=== PATIENT | male | born 1990 | race Caucasian/White ===

== ENCOUNTER → 2020-02-28 | Outpatient (CLI) | payer SELFPAY ==
[~2020-02-28] MED LIST: CATHETER FLUSH 10 ML SYR IV PRN; HOLD METFORMIN - RECEIVED CONTRAST 20 ML VIAL IV SCH; IOHEXOL 350 MG/ML 100 ML (OMNIPAQUE 350) VIAL IV ONE; NS 100 ML (IVPB) BAG IV ONE
--- NOTE | 2020-02-28 17:22 | Diagnostic Imaging Report ---
PROCEDURE: CT neck soft tissue with contrast. TECHNIQUE: Multiple contiguous axial images were obtained through the neck after the administration of contrast. Auto Exposure Controls were utilized during the CT exam to meet ALARA standards for radiation dose reduction. INDICATION: Mass in the right maxilla. COMPARISON: None available. FINDINGS: There are extensive nodules and masses throughout the visualized lung apices, indicative of metastatic disease. In the right maxilla, there is a soft tissue destructive mass located in the region of the premolar teeth. This completely destroys the maxilla and the mass measures approximately 2.8 x 2.8 cm. No invasion of the maxillary sinus, although the cranial aspect of the mass does extend into the buccal space. No mandibular destruction. No space-occupying mass or hydrocephalus within the visualized aspects of the brain. No enlarged cervical lymph nodes by size criteria. There are some small upper cervical lymph nodes, all measuring less than a centimeter in size. Thyroid is unremarkable. No destructive lesion in the cervical spine. IMPRESSION: 1. Extensive metastases throughout the upper chest with multiple nodules and masses present. 2. Soft tissue destructive mass in the right mireya-aspect of the maxilla centered in the region of the incisors and premolars should be considered neoplastic in nature and could also be a metastasis or the primary tumor. Dictated by: Dictated on workstation # [id number]
== END ==
LOC: RAD FS 15:30
DX: C78.00 Secondary malignant neoplasm of unspecified lung (principal); C80.1 Malignant (primary) neoplasm, unspecified; D49.0 Neoplasm of unspecified behavior of digestive system
CPT/HCPCS: 70491

== ENCOUNTER 2020-04-02 18:22 | Emergency (ER) | payer MEDICAID, OTHER ==
--- NOTE | 2020-04-02 18:35 | ED General ---
General Stated Complaint: LEFT SIDE NUMBNESS,WEAKNESS,FALL History of Present Illness Date Seen by Provider: Apr 02, 2020 Time Seen by Provider: 18:30 Initial Comments Patient presents after a sudden collapse then associated onset of left sided body weakness and numbness. Patient without a history of CVA but has metastatic CA....sarcoma. Seen yesterday @ [facility] by Oncology for initial evaluation. Admits to having an episode 2 wks ago of sudden left sided weakness and numbness (not as severe) that resolved after several hours, so he never sought treatment. Allergies and Home Medications Allergies Coded Allergies: No Known Drug Allergies (Unverified , 04/02/20) Patient Home Medication List Home Medication List Reviewed: Yes Review of Systems Review of Systems Constitutional: see HPI; No chills, No dizziness, No fever, No malaise; weakness EENTM: no symptoms reported Respiratory: No cough, No short of breath Cardiovascular: No chest pain, No edema, No palpitations, No syncope Gastrointestinal: No abdominal pain, No nausea, No vomiting Musculoskeletal: No back pain, No joint pain Skin: No change in color, No lesions, No rash Psychiatric/Neurological: See HPI, Headache, Numbness, Paresthesia; Denies Pre- Existing Deficit, Denies Seizure, Denies Tingling, Denies Tremors; Weakness Past Egimrbs-Jckogw-Vllxrc Hx Past Med/Social Hx: Reviewed Nursing Past Med/Soc Hx Patient Social History Recent Foreign Travel: No Contact w/Someone Who Travel: No Physical Exam Vital Signs Vital Signs - First Documented 04/02/20 18:39 Temp 36.4 Pulse 109 Resp 30 B/P (MAP) 135/79 (97) Pulse Ox 93 Capillary Refill : Height, Weight, BMI Height: '" Weight: lbs. oz. kg; BMI Method: General Appearance: No Apparent Distress, WD/WN Eyes: Bilateral Eye PERRL, Bilateral Eye EOMI HEENT: PERRL/EOMI, Normal ENT Inspection Neck: Full Range of Motion, Non Tender, Supple, Carotid Bruit Respiratory: Chest Non Tender, Lungs Clear Cardiovascular: Regular Rate, Rhythm, No Edema, No Gallop, No JVD, Normal Peripheral Pulses Gastrointestinal: Normal Bowel Sounds, Non Tender, Soft Back: No CVA Tenderness, No Vertebral Tenderness Extremity: Normal Capillary Refill, Normal Inspection, Non Tender Neurologic/Psychiatric: Alert, Oriented x3, Normal Mood/Affect; No Depressed Affect, No Disoriented; Facial Droop, Motor Weakness, Sensory Deficit, Other (flaccid left side...UE and LE w left facial droop which spares the forehead and dysarthria without aphasia) Skin: Normal Color, Warm/Dry Progress/Results/Core Measures Suspected Sepsis SIRS Temperature: Pulse: Respiratory Rate: Laboratory Tests 04/02/20 18:47: White Blood Count 8.1 Blood Pressure / Mean: Laboratory Tests 04/02/20 18:47: Platelet Count 376 Results/Orders Lab Results Laboratory Tests Test 04/02/20 18:47 Range/Units White Blood Count 8.1 4.3-11.0 10^3/uL Red Blood Count 4.46 4.35-5.85 10^6/uL Hemoglobin 12.6 L 13.3-17.7 G/DL Hematocrit 39 L 40-54 % Mean Corpuscular Volume 87 80-99 FL Mean Corpuscular Hemoglobin 28 25-34 PG Mean Corpuscular Hemoglobin Concent 33 32-36 G/DL Red Cell Distribution Width 13.5 10.0-14.5 % Platelet Count 376 130-400 10^3/uL Mean Platelet Volume 8.3 7.4-10.4 FL Immature Granulocyte % (Auto) 0 % Neutrophils (%) (Auto) 70 42-75 % Lymphocytes (%) (Auto) 16 12-44 % Monocytes (%) (Auto) 9 0-12 % Eosinophils (%) (Auto) 4 0-10 % Basophils (%) (Auto) 1 0-10 % Neutrophils # (Auto) 5.7 1.8-7.8 X 10^3 Lymphocytes # (Auto) 1.3 1.0-4.0 X 10^3 Monocytes # (Auto) 0.7 0.0-1.0 X 10^3 Eosinophils # (Auto) 0.4 H 0.0-0.3 10^3/uL Basophils # (Auto) 0.0 0.0-0.1 10^3/uL Immature Granulocyte # (Auto) 0.0 0.0-0.1 10^3/uL My Orders Orders - ENRIQUE BEAULIEU DO Ct Head Wo-R/O Stroke (04/02/20 18:27) Ed Iv/Invasive Line Start (04/02/20 18:31) Ekg Tracing (04/02/20 18:31) Cbc With Automated Diff (04/02/20 18:31) Comprehensive Metabolic Panel (04/02/20 18:31) Troponin I Fs (04/02/20 18:31) Ondansetron Injection (Zofran Injectio (04/02/20 19:00) Vital Signs/I&O 04/02/20 18:39 Temp 36.4 Pulse 109 Resp 30 B/P (MAP) 135/79 (97) Pulse Ox 93 Capillary Refill : ECG Initial ECG Impression Time: 18:40 Initial ECG Rate: 106 Initial ECG Rhythm: S.Tach Initial ECG Impression: Normal Initial ECG Comparisson: No Previous ECG Available Diagnostic Imaging Comments Date of Exam:04/02/20 CT HEAD WO-R/O STROKE EXAMINATION: CT head without contrast. TECHNIQUE: Multiple contiguous axial images were obtained through the brain without the use of intravenous contrast. All CT scans use one or more of the following dose optimizing techniques: automated exposure control, MA and/or KvP adjustment based on patient size and exam type or iterative reconstruction. HISTORY: Left-sided numbness and weakness. Fall. Slurred speech. History of metastatic cancer. COMPARISON: CT neck on 02/28/2020. FINDINGS: A hyperattenuating mass is seen in the right frontal lobe, measuring 4.0 x 3.6 cm and 3.6 cm craniocaudal. There is surrounding edema with associated 0.6 cm of right to left midline shift. No evidence of uncal or tonsillar herniation is seen. The orbits are normal. Paranasal sinuses are normal. Mastoid air cells are clear. No soft tissue abnormality is seen. No osseus lesions or fractures are seen. IMPRESSION: Findings concerning for hemorrhagic mass in the right frontal lobe with surrounding edema and 0.6 cm of right to left midline shift. No uncal or tonsillar herniation is seen at this time. Recommend neurosurgical consultation and close interval follow-up. Findings were discussed with Dr. Beaulieu at 6:44 PM on 04/02/[address] Kannan Magdaleno. Dictated by: Dictated on workstation # [id number] Dict: 04/02/20 1837 Trans: 04/02/20 5996 [id number] Interpreted by: KANNAN MAGDALENO DO Departure Impression Primary Impression: Acute CVA (cerebrovascular accident) Additional Impression: Brain mass Disposition: 02 XFER SHT-TRM HOSP Condition: Stable Transfer Transfer Reason: Exceeds level of care Transfer Progress Notes Called [facility] @ [id number] Burrows (Neuro) who advised pt go to Oncology service as the primary lesion is a mass (subsequent CVA) Departure-Patient Inst. Referrals: [facility] (PCP/Family) Primary Care Physician ENRIQUE BEAULIEU DO Apr 02, 2020 18:35
[2020-04-02 18:53] LABS: BASOPHILS % (AUTO) 1 % (0-10); EOSINOPHILS # (AUTO) 0.4 10^3/uL (0.0-0.3); EOSINOPHILS % (AUTO) 4 % (0-10); HEMATOCRIT 39 % (40-54); HEMOGLOBIN 12.6 G/DL (13.3-17.7); LYMPHOCYTES # (AUTO) 1.3 X 10^3 (1.0-4.0); LYMPHOCYTES % (AUTO) 16 % (12-44); MEAN CORPUSCULAR HEMOGLOBIN 28 PG (25-34); MEAN CORPUSCULAR HGB CONC 33 G/DL (32-36); MEAN CORPUSCULAR VOLUME 87 FL (80-99); MEAN PLATELET VOLUME 8.3 FL (7.4-10.4); MONOCYTES # (AUTO) 0.7 X 10^3 (0.0-1.0); MONOCYTES % (AUTO) 9 % (0-12); NEUTROPHILS # (AUTO) 5.7 X 10^3 (1.8-7.8); NEUTROPHILS % (AUTO) 70 % (42-75); PLATELET COUNT 376 10^3/uL (130-400); WHITE BLOOD COUNT 8.1 10^3/uL (4.3-11.0)
--- NOTE | 2020-04-02 18:57 | Diagnostic Imaging Report ---
EXAMINATION: CT head without contrast. TECHNIQUE: Multiple contiguous axial images were obtained through the brain without the use of intravenous contrast. All CT scans use one or more of the following dose optimizing techniques: automated exposure control, MA and/or KvP adjustment based on patient size and exam type or iterative reconstruction. HISTORY: Left-sided numbness and weakness. Fall. Slurred speech. History of metastatic cancer. COMPARISON: CT neck on 02/28/2020. FINDINGS: A hyperattenuating mass is seen in the right frontal lobe, measuring 4.0 x 3.6 cm and 3.6 cm craniocaudal. There is surrounding edema with associated 0.6 cm of right to left midline shift. No evidence of uncal or tonsillar herniation is seen. The orbits are normal. Paranasal sinuses are normal. Mastoid air cells are clear. No soft tissue abnormality is seen. No osseus lesions or fractures are seen. IMPRESSION: Findings concerning for hemorrhagic mass in the right frontal lobe with surrounding edema and 0.6 cm of right to left midline shift. No uncal or tonsillar herniation is seen at this time. Recommend neurosurgical consultation and close interval follow-up. Findings were discussed with Dr. Beaulieu at 6:44 PM on 04/02/[address] Kannan Magdaleno. Dictated by: Dictated on workstation # [id number]
[2020-04-02] MEDS ORDERED: ONDANSETRON 4 MG/2 ML (SDV) Z0FRAN IVP ONE (19:00)
[2020-04-02 19:36] LABS: ALANINE AMINOTRANSFERASE 17 U/L (0-55); ALKALINE PHOSPHATASE 90 U/L (40-136); BILIRUBIN,TOTAL 1.3 MG/DL (0.1-1.0); BUN/CREATININE RATIO 19; CALCIUM 10.1 MG/DL (8.5-10.1); CARBON DIOXIDE 24 MMOL/L (21-32); CHLORIDE 104 MMOL/L (98-107); CREATININE SERUM 0.81 MG/DL (0.60-1.30); GFR ESTIMATED > 60; GLUCOSE 119 MG/DL (70-105); POTASSIUM 4.7 MMOL/L (3.6-5.0); SODIUM 142 MMOL/L (135-145)
[2020-04-02 19:37] LABS: ALBUMIN 4.7 GM/DL (3.2-4.5); TOTAL PROTEIN 7.3 GM/DL (6.4-8.2)
[2020-04-02 20:10] VITALS: BP 119/79
[2020-04-02 21:18] VITALS: BP 130/77
== END 2020-04-02 21:32 | disposition short-term general hospital (02) ==
LOC: EDUNIT# 18:22 → EDBD 18:24 → ER FS 18:24
DX: I63.9 Cerebral infarction, unspecified (principal); G81.04 Flaccid hemiplegia affecting left nondominant side; R47.1 Dysarthria and anarthria; R29.810 Facial weakness; G93.9 Disorder of brain, unspecified; Z85.831 Personal history of malignant neoplasm of soft tissue
CPT/HCPCS: 36415; 70450; 80053; 84484; 85025; 93005; 99291

== ENCOUNTER → 2020-08-06 | Outpatient (CLI) | payer MEDICAID ==
[2020-08-06 09:50] LABS: BACTERIA,URINE NEGATIVE /HPF; BILIRUBIN,URINE NEGATIVE (NEGATIVE); CLARITY,URINE CLEAR; COLOR,URINE DARK YELLOW; GLUCOSE, URINE (UA) NEGATIVE (NEGATIVE); KETONES,URINE NEGATIVE (NEGATIVE); LEUKOCYTE ESTERASE ,URINE TRACE (NEGATIVE); NITRITE,URINE NEGATIVE (NEGATIVE); PROTEIN,URINE NEGATIVE (NEGATIVE)
== END ==
LOC: LAB FS 09:16
PROVIDERS: ATTEND Family Medicine
DX: R39.9 Unspecified symptoms and signs involving the genitourinary system (principal); R33.9 Retention of urine, unspecified; R10.2 Pelvic and perineal pain
CPT/HCPCS: 81000; 87088

== ENCOUNTER → 2020-08-21 | Outpatient (CLI) | payer MEDICAID ==
[2020-08-21 18:58] LABS: CLARITY,URINE CLEAR; COLOR,URINE YELLOW; PH,URINE 6.5 (5-9)
[2020-08-21 18:59] LABS: BACTERIA,URINE FEW /HPF; BILIRUBIN,URINE 1+ (NEGATIVE); GLUCOSE, URINE (UA) NEGATIVE (NEGATIVE); KETONES,URINE NEGATIVE (NEGATIVE); LEUKOCYTE ESTERASE ,URINE NEGATIVE (NEGATIVE); NITRITE,URINE NEGATIVE (NEGATIVE); PROTEIN,URINE 1+ (NEGATIVE)
== END ==
LOC: IHC 18:37
PROVIDERS: ATTEND Family Medicine
DX: C49.9 Malignant neoplasm of connective and soft tissue, unspecified (principal)
CPT/HCPCS: 81000; 87088

== ENCOUNTER 2020-09-01 17:14 | Emergency (ER) | payer MEDICAID ==
[~2020-09-01] VITALS: Ht 165 cm; Wt 58.0 kg
[2020-09-01] MEDS ORDERED: HYDROmorphone 2 MG/ML VIAL (DILAUDID) ONE (17:23)
[2020-09-01] MEDS ORDERED: NS IV 1000 ML 1,000 ML ONE (17:30)
[2020-09-01] MEDS ORDERED: HYDROmorphone 2 MG/ML VIAL (DILAUDID) IV ONE ×2 (17:45→20:00)
[2020-09-01 17:56] LABS: BASOPHILS % (AUTO) 0 % (0-10); EOSINOPHILS % (AUTO) 0 % (0-10); HEMATOCRIT 32 % (40-54); LYMPHOCYTES # (AUTO) 0.1 10^3/uL (1.0-4.0); LYMPHOCYTES % (AUTO) 1 % (12-44); MEAN CORPUSCULAR HEMOGLOBIN 27 pg (25-34); MEAN CORPUSCULAR HGB CONC 32 g/dL (32-36); MEAN CORPUSCULAR VOLUME 87 fL (80-99); MEAN PLATELET VOLUME 7.9 fL (9.0-12.2); MONOCYTES # (AUTO) 0.7 10^3/uL (0.0-1.0); MONOCYTES % (AUTO) 8 % (0-12); NEUTROPHILS # (AUTO) 8.7 10^3/uL (1.8-7.8); NEUTROPHILS % (AUTO) 90 % (42-75); PLATELET COUNT 143 10^3/uL (130-400); WHITE BLOOD COUNT 9.6 10^3/uL (4.3-11.0)
[2020-09-01 17:59] LABS: ALBUMIN 3.8 GM/DL (3.2-4.5)
[2020-09-01 18:00] LABS: CHLORIDE 98 MMOL/L (98-107); POTASSIUM 4.8 MMOL/L (3.6-5.0); SODIUM 131 MMOL/L (135-145)
[2020-09-01 18:01] LABS: CALCIUM 8.3 MG/DL (8.5-10.1)
--- NOTE | 2020-09-01 18:01 | ED General ---
General Stated Complaint: STAGE IV ASPS/BILAT LEG SWELLING/DISCOLORATION Source of Information: Patient Exam Limitations: No Limitations (BOB CARPIO MD) History of Present Illness Date Seen by Provider: Sep 01, 2020 Time Seen by Provider: 17:25 Initial Comments Patient here with mother with report of dark urine and pain from kidneys to p marta. Mother is concerned about possible kidney stone. Has had a catheter in place but was removed because it stopped flowing apparently because of blood clots. Patient is on hospice but is off hospice currently to have evaluation he has advanced sarcoma with multiple tumors and did have stroke in March of last year secondary to tumor. He apparently has tumors to his kidneys as well. He has 1 in the chest somewhere near his heart. He is known to have bilateral pleural effusions with right greater than left. Patient is on high doses of pain medicine due to the terminal illness. Reports some constipation. Mother is concern is that he has kidney stone or urinary tract infection and she would like that evaluated. Timing/Duration: 1-2 Days Severity: Moderate Associated Systoms: No Cough, No Fever/Chills; Loss of Appetite; No Nausea/Vomiting; Shortness of Air, Weakness (BOB CARPIO MD) Allergies and Home Medications Allergies Coded Allergies: latex (Verified Allergy, Intermediate, 09/01/20) Patient Home Medication List Home Medication List Reviewed: Yes (BOB CARPIO MD) Review of Systems Review of Systems Constitutional: see HPI; No chills, No fever EENTM: No nose congestion, No throat pain Respiratory: No cough; short of breath Cardiovascular: No chest pain; edema Gastrointestinal: abdominal pain; No nausea, No vomiting Genitourinary: hematuria; No pain Musculoskeletal: back pain, joint pain, muscle pain Skin: No change in color, No rash Psychiatric/Neurological: Pre-Existing Deficit, Weakness (BOB CARPIO MD) All Other Systems Reviewed Negative Unless Noted: Yes (BOB CARPIO MD) Past Jqywsdi-Juzmak-Hxtouc Hx Past Med/Social Hx: Reviewed Nursing Past Med/Soc Hx (BOB CARPIO MD) Patient Social History Alcohol Use: Denies Use Recent Hopitalizations: No (BOB CARPIO MD) Seasonal Allergies Seasonal Allergies: No (BOB CARPIO MD) Past Medical History Surgeries: Yes (Tumor resection brain) Respiratory: No Cardiac: No Neurological: No Genitourinary: No Gastrointestinal: No Musculoskeletal: No Endocrine: No HEENT: No Cancer: Yes (metastatic sarcoma- diagnosed 04/01/20) Psychosocial: No Integumentary: No (BOB CARPIO MD) Family Medical History Reviewed Nursing Family Hx (BOB CARPIO MD) No Pertinent Family Hx (BOB CARPIO MD) Physical Exam-Suspected Sepsis Physical Exam Vital Signs Vital Signs - First Documented 09/01/20 17:16 FiO2 95 (USHA MCDUFFIE MD) Vital Signs Capillary Refill : (BOB CARPIO MD) Height, Weight, BMI Height: '" Weight: lbs. oz. kg; BMI Method: General Appearance: No Apparent Distress, WD/WN HEENT: PERRL/EOMI, Pharynx Normal Neck: Non Tender, Supple Respiratory: Decreased Breath Sounds (Decreased breath sounds to lower two thirds of right lung and lower half of left lung consistent with effusions.); No Wheezing; Other (Mass noted upper central chest) Cardiovascular: No Murmur, Tachycardia Gastrointestinal: Non Tender, Soft Back: No Vertebral Tenderness, CVA Tenderness (L) (Mild), CVA Tenderness (R) (Mild) Extremity: Normal Range of Motion, Pedal Edema (2+ to knees bilateral) Neurologic/Psychiatric: Alert, Normal Mood/Affect Skin: normal color, warm/dry (BOB CARPIO MD) Focused Exam Lactate Level 09/01/20 17:30: Lactic Acid Level 1.30 (USHA MCDUFFIE MD) Lactic Acid Level Laboratory Tests Test 09/01/20 17:30 Lactic Acid Level 1.30 MMOL/L (0.50-2.00) (USHA MCDUFFIE MD) Progress/Results/Core Measures Suspected Sepsis SIRS Temperature: Pulse: Respiratory Rate: Blood Pressure / Mean: (BOB CARPIO MD) Results/Orders Lab Results Laboratory Tests Test 09/01/20 17:30 09/01/20 17:50 Range/Units White Blood Count 9.6 4.3-11.0 10^3/uL Red Blood Count 3.65 L 4.30-5.52 10^6/uL Hemoglobin 10.0 L 13.3-17.7 g/dL Hematocrit 32 L 40-54 % Mean Corpuscular Volume 87 80-99 fL Mean Corpuscular Hemoglobin 27 25-34 pg Mean Corpuscular Hemoglobin Concent 32 32-36 g/dL Red Cell Distribution Width 19.5 H 10.0-14.5 % Platelet Count 143 130-400 10^3/uL Mean Platelet Volume 7.9 L 9.0-12.2 fL Immature Granulocyte % (Auto) 1 % Neutrophils (%) (Auto) 90 H 42-75 % Lymphocytes (%) (Auto) 1 L 12-44 % Monocytes (%) (Auto) 8 0-12 % Eosinophils (%) (Auto) 0 0-10 % Basophils (%) (Auto) 0 0-10 % Neutrophils # (Auto) 8.7 H 1.8-7.8 10^3/uL Lymphocytes # (Auto) 0.1 L 1.0-4.0 10^3/uL Monocytes # (Auto) 0.7 0.0-1.0 10^3/uL Eosinophils # (Auto) 0.0 0.0-0.3 10^3/uL Basophils # (Auto) 0.0 0.0-0.1 10^3/uL Immature Granulocyte # (Auto) 0.1 0.0-0.1 10^3/uL Neutrophils % (Manual) 91 % Lymphocytes % (Manual) 2 % Monocytes % (Manual) 6 % Hypochromasia SLIGHT Anisocytosis SLIGHT Prothrombin Time 14.3 12.2-14.7 SEC INR Comment 1.1 0.8-1.4 Activated Partial Thromboplast Time 26 24-35 SEC Sodium Level 131 L 135-145 MMOL/L Potassium Level 4.8 3.6-5.0 MMOL/L Chloride Level 98 98-107 MMOL/L Carbon Dioxide Level 23 21-32 MMOL/L Anion Gap 10 5-14 MMOL/L Blood Urea Nitrogen 18 7-18 MG/DL Creatinine 0.53 L 0.60-1.30 MG/DL Estimat Glomerular Filtration Rate > 60 BUN/Creatinine Ratio 34 Glucose Level 128 H 70-105 MG/DL Lactic Acid Level 1.30 0.50-2.00 MMOL/L Calcium Level 8.3 L 8.5-10.1 MG/DL Corrected Calcium 8.5 8.5-10.1 MG/DL Total Bilirubin 1.1 H 0.1-1.0 MG/DL Aspartate Amino Transf (AST/SGOT) 26 5-34 U/L Alanine Aminotransferase (ALT/SGPT) 15 0-55 U/L Alkaline Phosphatase 58 40-136 U/L Total Protein 5.7 L 6.4-8.2 GM/DL Albumin 3.8 3.2-4.5 GM/DL Urine Color YELLOW Urine Clarity CLEAR Urine pH 6.0 5-9 Urine Specific Arco >=1.030 1.016-1.022 Urine Protein 2+ H NEGATIVE Urine Glucose (UA) NEGATIVE NEGATIVE Urine Ketones TRACE H NEGATIVE Urine Nitrite NEGATIVE NEGATIVE Urine Bilirubin 1+ H NEGATIVE Urine Urobilinogen 0.2 < = 1.0 MG/DL Urine Leukocyte Esterase NEGATIVE NEGATIVE Urine RBC (Auto) 3+ H NEGATIVE Urine RBC 50-100 H /HPF Urine WBC 2-5 /HPF Urine Crystals PRESENT H /LPF Urine Amorphous Sediment FEW DC URATES H /LPF Urine Bacteria TRACE /HPF Urine Casts NONE /LPF Urine Mucus MODERATE H /LPF Urine Culture Indicated CULTURE PENDING (USHA MCDUFFIE MD) My Orders Orders - USHA MCDUFFIE MD Hydromorphone Injection (Dilaudid Inject (09/01/20 20:00) (USHA MCDUFFIE MD) Medications Given in ED Current Medications Medications Dose Ordered Sig/Vignesh Route Start Time Stop Time Status Last Admin Dose Admin Hydromorphone HCl 2 mg ONCE ONCE IV 09/01/20 20:00 09/01/20 20:01 DC 09/01/20 20:02 2 MG Hydromorphone HCl 2 mg STK-MED ONCE .ROUTE 09/01/20 17:23 09/01/20 17:29 DC 09/01/20 17:34 2 MG Sodium Chloride 1,000 ml @ ud STK-MED ONCE .ROUTE 09/01/20 17:30 09/01/20 17:36 DC 09/01/20 17:36 1,000 MLS/HR (USHA MCDUFFIE MD) Vital Signs/I&O 09/01/20 09/01/20 09/01/20 17:16 17:16 17:16 Temp 37.0 37.0 Pulse 133 133 Resp 17 17 B/P (MAP) 143/83 (103) 143/83 (103) Pulse Ox 95 97 95 O2 Delivery Simple Mask Simple Mask Simple Mask O2 Flow Rate 2.00 2.00 2.00 FiO2 95 (USHA MCDUFFIE MD) Vital Signs/I&O Capillary Refill : (BOB CARPIO MD) Progress Note : Progress Note Seen and evaluated. IV, labs, blood cultures, lactic acid, UA, Moura catheter, chest x-ray and CT abdomen and pelvis without contrast (kidney stone protocol) ordered. Dilaudid 2 mg IV for pain which did help some. Normal saline 1 L bolus. 1800: Care transferred to Dr. Mcduffie pending all results. Moura catheter placed and mid yellow urine flowing. Patient's heart rate actually reduced and he states he feels better. Heart rate currently low 100s versus 120s. We did discuss goals of care with the mother which include comfort, evaluation for kidney stone and for urinary tract infection. She would like to take him home tonight if at all possible and outpatient antibiotic therapy for UTI would be okay with her if needed. (BOB CARPIO MD) Progress Note : Time: 20:11 Progress Note Patient seen and evaluated by me. Chief complaint of hematuria today also bilateral lower extremity swelling and discoloration per mom. No shortness of breath or chest pain or other concerns for pulmonary embolism. Patient is p retty much chronically immobile secondary to his extensive cancer. There is some concern with the swelling in his legs that he might have developed DVTs. I have discussed this with mom she is wanting to come back for ultrasound tomorrow. I will give an outpatient order for this to be performed tomorrow. I have reassured her that the CAT scan shows no evidence of renal stones. He does have quite extensive metastatic involvement of the left kidney. There is no signs of infection in the urinalysis and he has had good output since he has been here in the department. His heart rate is back down to about 110. He feels fine for discharge would like a second round of pain medications however. He is comfortable with the plan of care as his mom. Again they will get the ultrasound order for tomorrow and they will touch base with hospice. We are going to discharge him with a Moura catheter in place and mom will talk to the hospice nurses about removing this at a later time possibly this week. All questions are sought and answered. Kb is stable for discharge. (USHA MCDUFFIE MD) Diagnostic Imaging Diagonstic Imaging: Xray, CT Plain Films/CT/US/NM/MRI: abdomen Comments [facility] [place], [place] NAME: KB [facility] REC#: [id number] PT STATUS: REG ER : 12/19/1989 PHYSICIAN: BOB CARPIO MD ADMIT DATE: 09/01/20/ER Signed Date of Exam:09/01/20 CT ABD/PELVIS WO(KIDNEY STONE) PROCEDURE: CT urinary tract, rule out kidney stone. TECHNIQUE: Multiple contiguous axial images were obtained through the abdomen and pelvis without the use of intravenous contrast. Auto Exposure Controls were utilized during the CT exam to meet ALARA standards for radiation dose reduction. INDICATION: Flank pain FINDINGS: There are multiple metastatic lesions in the lungs. There is also consolidation with atelectasis of the right lower lung. The liver is unremarkable. Gallbladder is contracted. Pancreas appears normal. There is a 3.7 cm mass in the left posterior pararenal space lateral to the psoas muscle. There are retroperitoneal masses medial to the left kidney, posterior and anterior to the left kidney that measured up to 1.5 cm in diameter. There is a subcutaneous nodule at the level of left kidney that measures 1.5 cm in diameter. There is a 2.7 cm mass anterior to the left kidney. There is a 5.3 cm mass superior to the left kidney and anterior to the pancreatic tail. There is a 2 mm calculus in the lower pole calyx of the left kidney. Small bowel is not dilated. There is a large amount of stool throughout the colon with a rectal fecal impaction. There is no intraperitoneal free air or free fluid. There appears to be a pathologic compression fracture of T10. IMPRESSION: 1. Diffuse pulmonary metastases. 2. Multiple extraperitoneal metastatic deposits primarily around the left kidney. 3. Pathologic compression fracture at T12. 4. Osteolytic lesion in the left ilium at the base of the wing. Dictated by: Dictated on workstation # [id number] Dict: 09/01/20 185 Trans: 09/01/201920 [facility] [id number] Interpreted by: BOB ROSALES MD Electronically signed by: BOB ROSALES MD 09/01/201920 [facility]. [place] NAME: KB [facility] REC#: [id number] PT STATUS: REG ER : 12/19/1989 PHYSICIAN: BOB CARPIO MD ADMIT DATE: 09/01/20/ER Signed Date of Exam:09/01/20 CHEST 1 VIEW, AP/PA ONLY INDICATION: Sepsis Portable chest x-ray 9:00 PM There are multiple round masses throughout the lungs ranging in size up to 5 cm in diameter. There are no effusions. There is no pneumothorax. There are no appreciable infiltrates. IMPRESSION: Severe diffuse pulmonary metastases. Dictated by: Dictated on workstation # [id number] Dict: 09/01/20 184 Trans: 09/01/201920 [place] [id number] Interpreted by: BOB ROSALES MD Electronically signed by: BOB ROSALES MD 09/01/201920 (USHA MCDUFFIE MD) Departure Impression Primary Impression: History of hematuria Additional Impressions: Localized swelling of both lower legs Metastatic cancer Qualified Codes: C79.9 - Secondary malignant neoplasm of unspecified site Disposition: 01 HOME, SELF-CARE Condition: Stable Departure-Patient Inst. Decision time for Depature: 20:15 (USHA MCDUFFIE MD) Referrals: CONNIE NICHOLAS MD (PCP/Family) Primary Care Physician Patient Instructions: Blood in the Urine (Hematuria) in Adults, Dependent Edema (DC) Add. Discharge Instructions: Encourage plenty of fluids so that he stays well-hydrated. Call the radiology office in the morning at [phone] to arrange for an ap pointment to come in to have the legs ultrasounded for blood clots. Follow-up with hospice regarding the Moura catheter. BOB CARPIO MD Sep 01, 2020 18:01 USHA MCDUFFIE MD Sep 01, 2020 19:42
[2020-09-01 18:02] LABS: GLUCOSE 128 MG/DL (70-105); TOTAL PROTEIN 5.7 GM/DL (6.4-8.2)
[2020-09-01 18:03] LABS: CARBON DIOXIDE 23 MMOL/L (21-32)
[2020-09-01 18:04] LABS: BILIRUBIN,TOTAL 1.1 MG/DL (0.1-1.0); INR 1.1 (0.8-1.4); PROTHROMBIN TIME PATIENT 14.3 SEC (12.2-14.7)
[2020-09-01 18:05] LABS: ALKALINE PHOSPHATASE 58 U/L (40-136)
[2020-09-01 18:06] LABS: CREATININE SERUM 0.53 MG/DL (0.60-1.30); GFR ESTIMATED > 60
[2020-09-01 18:07] LABS: BUN/CREATININE RATIO 34
[2020-09-01 18:09] LABS: ALANINE AMINOTRANSFERASE 15 U/L (0-55)
[2020-09-01 18:09] LABS: CLARITY,URINE CLEAR; COLOR,URINE YELLOW; GLUCOSE, URINE (UA) NEGATIVE (NEGATIVE); KETONES,URINE TRACE (NEGATIVE); LEUKOCYTE ESTERASE ,URINE NEGATIVE (NEGATIVE); NITRITE,URINE NEGATIVE (NEGATIVE); PROTEIN,URINE 2+ (NEGATIVE)
[2020-09-01 18:27] LABS: BILIRUBIN,URINE 1+ (NEGATIVE); RBC,URINE 50-100 /HPF
[2020-09-01 18:29] LABS: AMORPHOUS SEDIMENT,UR FEW AMOR URATES /LPF; BACTERIA,URINE TRACE /HPF
[2020-09-01 18:36] LABS: NEUTROPHILS % (MANUAL) 91 %
[2020-09-01 18:37] LABS: ANISOCYTOSIS SLIGHT; HYPOCHROMASIA SLIGHT; LYMPHOCYTES % (MANUAL) 2 %; MONOCYTES % (MANUAL) 6 %
--- NOTE | 2020-09-01 18:48 | Diagnostic Imaging Report ---
INDICATION: Sepsis Portable chest x-ray 9:00 PM There are multiple round masses throughout the lungs ranging in size up to 5 cm in diameter. There are no effusions. There is no pneumothorax. There are no appreciable infiltrates. IMPRESSION: Severe diffuse pulmonary metastases. Dictated by: Dictated on workstation # [id number]
--- NOTE | 2020-09-01 19:09 | Diagnostic Imaging Report ---
PROCEDURE: CT urinary tract, rule out kidney stone. TECHNIQUE: Multiple contiguous axial images were obtained through the abdomen and pelvis without the use of intravenous contrast. Auto Exposure Controls were utilized during the CT exam to meet ALARA standards for radiation dose reduction. INDICATION: Flank pain FINDINGS: There are multiple metastatic lesions in the lungs. There is also consolidation with atelectasis of the right lower lung. The liver is unremarkable. Gallbladder is contracted. Pancreas appears normal. There is a 3.7 cm mass in the left posterior pararenal space lateral to the psoas muscle. There are retroperitoneal masses medial to the left kidney, posterior and anterior to the left kidney that measured up to 1.5 cm in diameter. There is a subcutaneous nodule at the level of left kidney that measures 1.5 cm in diameter. There is a 2.7 cm mass anterior to the left kidney. There is a 5.3 cm mass superior to the left kidney and anterior to the pancreatic tail. There is a 2 mm calculus in the lower pole calyx of the left kidney. Small bowel is not dilated. There is a large amount of stool throughout the colon with a rectal fecal impaction. There is no intraperitoneal free air or free fluid. There appears to be a pathologic compression fracture of T10. IMPRESSION: 1. Diffuse pulmonary metastases. 2. Multiple extraperitoneal metastatic deposits primarily around the left kidney. 3. Pathologic compression fracture at T12. 4. Osteolytic lesion in the left ilium at the base of the wing. Dictated by: Dictated on workstation # [id number]
[2020-09-01 20:24] VITALS: BP 130/83
== END 2020-09-01 20:40 | disposition home or self-care (01) ==
LOC: EDUNIT# 17:14 → ER 17:16
DX: C79.02 Secondary malignant neoplasm of left kidney and renal pelvis (principal); C49.9 Malignant neoplasm of connective and soft tissue, unspecified; C34.90 Malignant neoplasm of unspecified part of unspecified bronchus or lung; R22.43 Localized swelling, mass and lump, lower limb, bilateral; R31.9 Hematuria, unspecified; Z91.040 Latex allergy status
CPT/HCPCS: 36415; 51702; 71045; 74176; 80053; 81000; 83605; 85007; 85027; 85610; 85730; 87040; 87088

== ENCOUNTER → 2020-09-02 | Outpatient (CLI) | payer MEDICAID ==
--- NOTE | 2020-09-02 11:45 | Diagnostic Imaging Report ---
PROCEDURE: US Venous Lower Ext Herbert. INDICATION: BILAT LE SWELLING/DISCOLORATION TECHNIQUE: Multiple real-time grayscale images were obtained over the lower extremities in various projections, bilaterally. Additional duplex Doppler and color Doppler images were also obtained. CORRELATION STUDY: None FINDINGS: Color and grayscale sonographic images demonstrate no intraluminal defect within the visualized portion of the common femoral, superficial femoral and/or popliteal veins to suggest thrombus formation. These vessels demonstrate normal response to compression and augmentation. No soft tissue fluid collection. IMPRESSION: 1. Negative for deep venous thrombosis of either leg. Dictated by: Dictated on workstation # [id number]
== END ==
LOC: RAD 10:17
PROVIDERS: ATTEND Emergency Medicine
DX: M79.89 Other specified soft tissue disorders (principal); L60.8 Other nail disorders
CPT/HCPCS: 93970